=== PATIENT | male | born 1980 | race Caucasian/White ===

== ENCOUNTER 2017-08-01 20:09 | Emergency (ER) | payer OTHER ==
[2017-08-01 20:20] VITALS: BP 128/71
--- NOTE | 2017-08-01 22:33 | ED Physician Documentation ---
PD HPI UPPER EXT INJURY - Stated complaint Stated Complaint: FINGER LAC - Chief complaint Chief Complaint: Laceration - History of Present Illness Location: Right, Finger Type of injury: Laceration Where injury occurred: Home Timing - onset: Today Timing - details: Abrupt onset Contributing factors: No: Anticoagulated Similar symptoms before: Has not had sx before Recently seen: Not recently seen - Additonal information Additional information: Patient is a 37 year old male with no significant past medical history who is presenting to the emergency department for a right thumb laceration. patient states that he was cutting carrots on a mandolin and he sliced the tip of his finger. Patient cleaned it with hydrogen peroxide which caused his thumb to move involuntarily so patient became concerned. patient is up to date on his tetanus. Review of Systems Ten Systems: 10 systems reviewed and negative Skin: reports: Laceration (s) Musculoskeletal: reports: Extremity pain PD PAST MEDICAL HISTORY - Past Medical History Past Medical History: Yes Neuro: Headache/migraine - Past Surgical History Past Surgical History: Yes - Present Medications Home Medications: Ambulatory Orders Medication Instructions Recorded Confirmed Rizatriptan Benzoate [Rizatriptan] 10 mg PO 08/01/17 - Allergies Allergies/Adverse Reactions: Allergies Allergy/AdvReac Type Severity Reaction Status Date / Time No Known Drug Allergies Allergy Verified 08/01/17 20:19 - Social History Does the pt smoke?: No Smoking Status: Former smoker Does the pt drink ETOH?: No Does the pt have substance abuse?: No - Immunizations Immunizations are current?: Yes PD ED PE NORMAL - Vitals Vital signs reviewed: Yes - General General: Alert and oriented X 3, No acute distress - HEENT HEENT: Atraumatic - Cardiac Cardiac: RRR - Respiratory Respiratory: No respiratory distress - Abdomen Abdomen: Non distended - Neuro Neuro: Alert and oriented X 3, No motor deficit, No sensory deficit, Normal speech Eye Opening: Spontaneous PD ED PE EXPANDED - Extremities Extremities: Right finger(s) (small avulsion lacertion tip of right fifth digit , no active bleeding, no thumb involvement) Results - Vitals Vitals: Vital Signs - 24 hr 08/01/17 20:17 Temperature 36.7 C Heart Rate 81 Respiratory 15 Rate Blood Pressure 128/71 O2 Saturation 97 Oxygen O2 Source Room air Procedures - Laceration (location) right thumb Length in cm: 0.5 Wound type: Flap Wound Preparation: Other (soap and water) Skin layer closure: Dermabond Other: Patient tolerated well, Tetanus UTD PD MEDICAL DECISION MAKING - ED course Complexity details: reviewed old records, reviewed results, re-evaluated patient , considered differential, d/w patient, d/w family ED course: Patient was seen and examined at bedside. patient was well appearing and in no distress. thumb was cleaned with soap and water and dermabond was placed on the laceration. Patient required no further work up and was stable for discharge with outpatient follow up. Departure - Departure Disposition: 01 Home, Self Care Clinical Impression: Laceration Condition: Good Instructions: ED Laceration Small Superf No Sutr Follow-Up: Abbe Kee MD [Primary Care Provider] - As Needed Comments: You should leave your finger alone for the next 24 hours. after that you should keep it clean and dry with soap and water. You can apply topical antibiotics as needed. You can take motrin or tylenol as needed for pain. You should keep it covered at work and can let it air out at home.
== END 2017-08-01 22:38 | disposition home or self-care (01) ==
LOC: ED 20:09
DX: S61.011A Laceration without foreign body of right thumb without damage to nail, initial encounter (principal); W27.4XXA Contact with kitchen utensil, initial encounter; Y93.G1 Activity, food preparation and clean up; Z87.891 Personal history of nicotine dependence
CPT/HCPCS: 12001; 99282; 99283